=== PATIENT | male | born 1990 | race Two or more races ===

== ENCOUNTER 2024-09-13 16:31 | Emergency (ER) | payer MEDICAID, SELFPAY ==
[2024-09-13 16:52] VITALS: BP 133/82; PULSE 89; RESP 16; TEMP 37.2; O2SAT 96; BMI 29.6
--- NOTE | 2024-09-13 17:03 | EDNOTE_ITS ---
ED Neck Injury Pain RME/HPI General Chief Complaint: Neck Pain/Injury Stated Complaint: LUMP LEFT NECK, TIRED X 3 DAYS Time Seen by Provider: 09/13/24 16:56 Arrival date/time: 09/13/24 16:31 34-year-old male presents emergency department today stating that he has a lump to the left side of his neck patient reports pain is worse with movement of the neck patient reports no throat pain. Patient reports he has been feeling fatigued patient reports that he had outpatient labs with his primary care doctor 5 days ago and he will have his results in 1 week and a follow-up with his primary care doctor Limitations: no limitations Related Data Previous Rx's ?Medication ?Instructions ?Recorded ibuprofen 800 mg tablet 800 mg PO TID PRN pain #30 t abs 09/13/24 Allergies Allergy/AdvReac Type Severity Reaction Status Date / Time No Known Allergies Allergy Verified 09/13/24 16:36 Review of Systems Review of Systems Systems Reviewed: All systems reviewed, normal except as documented Constitutional Constitutional: Reports system reviewed and no additional complaints, except as documented, Denies fever(s) and Denies headache(s) Eyes Eyes: Reports system reviewed and no additional complaints, except as documented and Denies blurry vision ENT Ears, Nose, Mouth, and Throat: Reports system reviewed and no additional complaints, except as documented, Denies headache(s), Denies nasal congestion and Denies nasal discharge Cardiovascular Cardiovascular: Reports system reviewed and no additional complaints, except as documented, Denies chest pain and Denies dyspnea Respiratory Respiratory: Reports system reviewed and no additional complaints, except as documented, Denies chest congestion, Denies cough and Denies dyspnea Gastrointestinal Gastrointestinal: Reports system reviewed and no additional complaints, except as documented and Denies abdominal pain Integumentary/Breasts Skin/Breast: Reports system reviewed and no additional complaints, except as documented, Denies rash and Reports other (Cyst left side of neck) Neurologic Neurologic: Reports system reviewed and no additional complaints, except as documented, Reports as per HPI and Denies headache(s) Past Medical History Past Medical History NEUROLOGIC: Negative Neurological Disorders CARDIAC: Negative Cardiac Disorders Social History SMOKING STATUS: Never smoker ED Exam General Limitations: Present no limitations General appearance: Present alert and in no apparent distress Head Head exam: Present atraumatic Eye Eye exam: Present normal appearance, PERRL and EOMI ENT ENT exam: Present normal exam, normal oropharynx and mucous membranes moist Neck Neck exam: Present full ROM and trachea midline Expanded Neck Exam Neck image: 2 1. Cyst Chest Chest inspection: Present normal inspection and symmetric chest wall rise Respiratory Respiratory exam: Present normal lung sounds bilaterally Cardiovascular Cardiovascular exam: Present regular rate, normal rhythm and normal heart sounds Abdominal Exam Abdominal exam: Present soft and normal bowel sounds Extremities Exam Extremities exam: Present normal inspection and full ROM Back Exam Back exam: Present normal inspection and full ROM Neurological Exam Neurological exam: Present alert, oriented X3 and CN II-XII intact Psychiatric Psychiatric exam: Present normal affect and normal mood Skin Skin exam: Present warm, dry, intact and normal color Course Quality Measures none Vital Signs Vital signs: Vital Signs Temperature 98.9 F 09/13/24 16:52 Pulse Rate 89 09/13/24 16:52 Respiratory Rate 16 09/13/24 16:52 Blood Pressure 133/82 H 09/13/24 16:52 Pulse Oximetry (%) 96 09/13/24 16:52 Oxygen Delivery Method Room Air 09/13/24 16:52 O2 saturation 96% on room air within the limits Neck Pain MDM Narrative MDM Narrative:: 34-year-old male presents emergency department today stating that he has a lump to the left side of his neck patient reports pain is worse with movement of the neck patient reports no throat pain. Patient reports he has been feeling fatigued patient reports that he had outpatient labs with his primary care doctor 5 days ago and he will have his results in 1 week and a follow-up with his primary care doctor On exam patient well-appearing patient is not appear ill or toxic patient hemodynamically stable On exam patient appears to have a cyst left side of the neck Patient discharged home in no distress to follow-up with primary care doctor in the next 24 to 48 hours and for any worsening symptoms to return to the ER immediately Patient data External records reviewed:: [facility] previous records Clinical information provided by:: patient Social determinants that could affect healthcare access:: none Patient has the following chronic illnesses:: None How is presenting disease/condition affected by chronic disease/condition?: no chronic disease Evaluation data The following diagnostics were reviewed and interpreted by me:: other (specify) (N/A) Lab and/or radiology exams considered but not ordered:: Consider not ordered Interpretation Summary: N/A Medications / Prescriptions Medications or Prescriptions considered but not ordered:: Given Medication administrations:: Given Consultations Consultation(s) initiated? (list below): No Diagnosis Neck Differential Diagnosis: other (Cyst, abscess, malignancy) Most likely diagnosis given after review of the tests above:: Cyst Admission Indicated Admission indicated?: not indicated Admission Request Was there a request for admission?: No Disposition Plan Disposition Plan: Discharge Discharge Attestation Discharge Attestation: The patient and all family members were given an opportunity to ask questions and understood the discharge instructions. Discharge instructions specifically effects, indications for sooner follow up or return to the emergency department, and the expected course of current diagnosis. Patient condition: Stable Discharge Plan Plan Patient Disposition: HOME (Self Care) Disposition Comment: Stable Prescriptions/Referrals Prescriptions/Med Rec: New ibuprofen 800 mg tablet 800 mg PO TID PRN (Reason: pain) Qty: 30 0RF Problem List Clinical Impression: Sebaceous cyst Patient/Caregiver Discharge Instructions Education Materials: ED Epidermoid Cyst, No Infection Additional Instructions: You appear to have a sebaceous cyst at this time please follow-up with your primary care doctor request referral to general surgeon for possible removal for worsening symptoms or concerns return immediately Print Language: Citizen Of [place] Stand Alone Forms: Brooke Award Info., Patient Portal Info Letter DAYANARA/SIMON Supervising Physician DAYANARA/SIMON Supervising Physician: Dr Hyatt
== END 2024-09-13 17:12 | disposition home or self-care (01) ==
LOC: SERX 17:06
PROVIDERS: Emergency Provider Emergency Medicine
DX: L72.3 Sebaceous cyst (principal)
CPT/HCPCS: 99281

== ENCOUNTER → 2024-09-26 | Outpatient (CLI) | payer MEDICAID, SELFPAY ==
--- NOTE | 2024-09-26 13:30 | XR_ITS ---
Examination: Ultrasound soft tissue neck TECHNIQUE: Grayscale sonographic images soft tissue neck Exam date and time: September 26, 2024 1332 hours INDICATIONS: Palpable lump noticed left neck beginning 2 months ago. FINDINGS: Soft tissue images demonstrate lymph node 5 x 15 x 15 mm at the area concern left neck IMPRESSION:: Enlarged lymph node soft tissue left neck, consider CT soft tissue neck post intravenous contrast follow-up
== END | disposition home or self-care (01) ==
LOC: CDIM 13:14
PROVIDERS: PCP Physician Assistant; Referring Provider Physician Assistant; Visit Provider Physician Assistant
DX: R59.9 Enlarged lymph nodes, unspecified (principal)
CPT/HCPCS: 76536